=== PATIENT | male | born 1950 | race Caucasian/White ===

== ENCOUNTER 2017-11-13 00:18 | Emergency (ER) | payer MEDICARE, OTHER ==
[2017-11-13] MEDS ORDERED: PROPARACAINE 0.5% OPHTH DROPS 15 ML EACHEYE STA (00:33)
[2017-11-13] MEDS ORDERED: ERYTHROMYCIN OPHTH OINT 1 GM TUBE LEFTEYE STA (00:52)
--- NOTE | 2017-11-13 00:56 | ED Physician Documentation ---
PD HPI OPHTHO - Stated complaint Stated Complaint: LT EYE PAIN - Chief complaint Chief Complaint: Heent - History obtained from History obtained from: Patient - History of Present Illness Timing - onset: Today Timing - details: Constant Severity Comments: moderate Quality / character: Burning Associated symptoms: FB sensation Contributing factors: Other (The patient reports working with wood yesterday and reports getting wood dust in his eye. This morning the patient awoke with a foreign body sensation in his left eye. The patient has been rubbing his eye considerably for the past several hours. No relieving factors) Review of Systems Constitutional: denies: Fever Eyes: reports: Photophobia, Discharge, Irritation Ears: denies: Ear pain Nose: denies: Rhinorrhea / runny nose GI: denies: Nausea Skin: denies: Rash Musculoskeletal: denies: Neck pain Neurologic: denies: Headache PD PAST MEDICAL HISTORY - Past Medical History Past Medical History: Yes Cardiovascular: Hypertension : Kidney stones - Past Surgical History Past Surgical History: No - Present Medications Home Medications: Ambulatory Orders Medication Instructions Recorded Confirmed Erythromycin Base [Erythromycin 1 gm OP BID 5 Days #1 oint...g. 11/13/17 Ophthalmic Ointment] - Allergies Allergies/Adverse Reactions: Allergies Allergy/AdvReac Type Severity Reaction Status Date / Time No Known Drug Allergies Allergy Verified 11/13/17 00:30 - Social History Does the pt smoke?: No Smoking Status: Never smoker Does the pt drink ETOH?: No Does the pt have substance abuse?: No - Immunizations Immunizations are current?: No Immunizations: TDAP >10years/unknown - POLST Patient has POLST: No PD ED PE NORMAL - General General: Alert and oriented X 3, No acute distress - HEENT HEENT: Atraumatic - Neck Neck: Supple, no meningeal sign - Derm Derm: Normal color - Extremities Extremities: No deformity - Neuro Neuro: Alert and oriented X 3, Normal speech - Psych Psych: Normal affect PD ED PE EXPANDED - Eyes Eyes: PERRL, EOMI, Left eye, No eyelid FB (everted), Injected conj/sclera, Corneal abrasion, Fluorescein uptake, Anterior chambers clear, Other (The patient's I was evaluated with the slit-lamp. I could not identify a foreign body but there was evidence of a corneal abrasion. The anterior chamber was clear. The patient also had injected conjunctiva. The right eye had no abnormality). No: Subconj hemorrhage, Corneal FB, Hyphema, Ant chamber cells/ flare Results - Vitals Vitals: Vital Signs - 24 hr 11/13/17 11/13/17 00:25 01:03 Temperature 36.5 C 36.6 C Heart Rate 74 68 Respiratory 16 18 Rate Blood Pressure 248/97 H 230/95 H O2 Saturation 98 98 Oxygen O2 Source Room air PD MEDICAL DECISION MAKING - ED course ED course: The patient's I was evaluated using the slit-lamp and no foreign body was identified, the eyelid was inverted and I saw no evidence of foreign body. The patient's symptoms seem to be secondary to a corneal abrasion. The patient currently appears appropriate for discharge and ongoing outpatient management. I advised that the patient should follow-up with his department supervisor for recheck. The patient understands and agrees. I discussed warning signs and recommended returning to the emergency department immediately for worsening or any concerns - Sepsis Event Vital Signs: Vital Signs - 24 hr 11/13/17 11/13/17 00:25 01:03 Temperature 36.5 C 36.6 C Heart Rate 74 68 Respiratory 16 18 Rate Blood Pressure 248/97 H 230/95 H O2 Saturation 98 98 Oxygen O2 Source Room air Departure - Departure Disposition: 01 Home, Self Care Clinical Impression: Corneal abrasion Qualifiers: Encounter type: initial encounter Laterality: left Qualified Code(s): S05.02XA - Injury of conjunctiva and corneal abrasion without foreign body, left eye, initial encounter Condition: Good Instructions: Corneal Injury, ED Eye Injury Corneal Abrasion Prescriptions: Erythromycin Base [Erythromycin Ophthalmic Ointment] 1 gm OP BID 5 Days #1 oint...g. Comments: Please follow-up with your department supervisor this week for recheck and reevaluation of your injury. Please return to the emergency department for worsening symptoms or any concerns
[2017-11-13 01:05] VITALS: BP 230/95
== END 2017-11-13 01:05 | disposition home or self-care (01) ==
LOC: ED 00:18
DX: S05.02XA Injury of conjunctiva and corneal abrasion without foreign body, left eye, initial encounter (principal); W22.8XXA Striking against or struck by other objects, initial encounter; I10 Essential (primary) hypertension
CPT/HCPCS: 99283; J3490

== ENCOUNTER 2019-12-10 14:08 | Observation (INO) | payer MEDICARE, OTHER ==
[2019-12-10 15:55] LABS: BASOPHILS % (AUTO) 0.3 %; EOSINOPHILS # (AUTO) 0.1 10^3/uL (0.0-0.7); EOSINOPHILS % (AUTO) 2.2 %; HGB - HEMOGLOBIN 14.6 g/dL (14.0-18.0); LYMPHOCYTES # (AUTO) 1.9 10^3/uL (1.5-3.5); LYMPHOCYTES % (AUTO) 31.7 %; MEAN CORPUSCULAR HEMOGLOBIN 29.9 pg (27.0-31.0); MEAN CORPUSCULAR HGB CONC 33.3 g/dL (32.0-36.0); MEAN PLATELET VOLUME 10.1 fL (7.4-11.4); MONOCYTES # (AUTO) 0.5 10^3/uL (0.0-1.0); MONOCYTES % (AUTO) 8.2 %; NEUTROPHILS # (AUTO) 3.3 10^3/uL (1.5-6.6); NEUTROPHILS % (AUTO) 57.3 %; PLT - PLATELET COUNT 166 10^3/uL (130-450); RED BLOOD COUNT 4.88 10^6/uL (4.70-6.10); RED CELL DISTRIBUTION WIDTH 12.9 % (12.0-15.0); WHITE BLOOD COUNT 5.8 x10^3/uL (4.8-10.8)
--- NOTE | 2019-12-10 16:04 | XRAY Report ---
PROCEDURE: Chest 1 View X-Ray INDICATIONS: chest pain TECHNIQUE: One view of the chest was acquired. COMPARISON: None FINDINGS: Surgical changes and devices: None. Lungs and pleura: No pleural effusions or pneumothorax. Lungs are clear. Mediastinum: Mediastinal contours appear normal. Heart size is normal. Bones and chest wall: No suspicious bony lesions. Overlying soft tissues appear unremarkable. IMPRESSION: No acute cardiopulmonary pathology. Reviewed by: Ramón Muñoz MD on 12/10/2019 4:03 PM PDT Approved by: Ramón Muñoz MD on 12/10/2019 4:03 PM PDT Station ID: [id number]
[2019-12-10 16:07] LABS: KETONES, SERUM (ACETEST) NEGATIVE (NEGATIVE)
[2019-12-10 16:12] LABS: ALBUMIN 4.2 g/dL (3.2-5.5); ALBUMIN/GLOBULIN RATIO 1.1 (1.0-2.2); ALKALINE PHOSPHATASE 52 IU/L (42-121); ALT ALANINE AMINOTRANSFERASE 23 IU/L (10-60); AST ASPARTATE AMINOTRANSFERASE 28 IU/L (10-42); BILIRUBIN,TOTAL 0.7 mg/dL (0.2-1.0); BUN - BLOOD UREA NITROGEN 27 mg/dL (6-20); CALCIUM 9.6 mg/dL (8.5-10.3); CARBON DIOXIDE - CO2 31 mmol/L (21-32); CHLORIDE 105 mmol/L (101-111); CREATININE 1.2 mg/dL (0.6-1.2); GLUCOSE 94 mg/dL (70-100); LIPASE 24 U/L (22-51); MAGNESIUM 2.1 mg/dL (1.7-2.8); SODIUM 143 mmol/L (135-145); TOTAL PROTEIN 8.1 g/dL (6.7-8.2)
--- NOTE | 2019-12-10 17:00 | ED Physician Documentation ---
PD HPI ALTERED MENTAL STATUS - Stated complaint Stated Complaint: OVERALL TIREDNESS - Chief complaint Chief Complaint: General - History obtained from History obtained from: Patient - History of Present Illness Timing - onset: Yesterday (Reported abrupt onset yesterday of confusion forgetfulness and some trouble with word search and speaking. No focal weakness noted. No aphasia per se. Nursing notes state forgetful for a week, but tells me that is has been distinctly noticable just the past 2 days.) Timing - details: Abrupt onset, Still present, Waxing and waning Quality / character: Confused, Disoriented. No: Less responsive, Agitated Associated symptoms: Headache (moderate). No: Fever, Dyspnea Contributing factors: Diabetic (and has not checked blood sugar for a long time. Also has not been on meds for DM nor BP for 6 months to a year. Does not check BP either.). No: Anticoagulated, Recent med change, Intoxicated [place]line status: Alert and oriented X 3, Ambulatory Similar symptoms before: Has not had sx before Recently seen: Not recently seen Review of Systems Constitutional: denies: Fever Nose: denies: Rhinorrhea / runny nose, Congestion Throat: denies: Sore throat Cardiac: denies: Chest pain / pressure, Palpitations Respiratory: denies: Dyspnea, Cough GI: denies: Abdominal Pain, Nausea, Vomiting, Diarrhea : denies: Dysuria Skin: denies: Rash, Lesions Musculoskeletal: denies: Neck pain, Back pain Neurologic: reports: Difficulty speaking, Confused (for couple days), Altered mental status, Headache. denies: Focal weakness, Numbness, Head injury PD PAST MEDICAL HISTORY - Past Medical History Past Medical History: Yes Cardiovascular: Hypertension (not taking meds for year or more) Endocrine/Autoimmune: Type 2 diabetes (not taking meds for year or more) : Kidney stones - Past Surgical History Past Surgical History: No - Present Medications Home Medications: Ambulatory Orders Medication Instructions Recorded Confirmed Erythromycin Base [Erythromycin 1 gm OP BID 5 Days #1 oint...g. 11/13/17 Ophthalmic Ointment] - Allergies Allergies/Adverse Reactions: Allergies Allergy/AdvReac Type Severity Reaction Status Date / Time No Known Drug Allergies Allergy Verified 12/10/19 14:14 - Living Situation Living Situation: reports: With spouse/s.o. Living Arrangement: reports: At home - Social History Does the pt smoke?: No Smoking Status: Never smoker Does the pt drink ETOH?: No Does the pt have substance abuse?: No - Family History Family history: denies: CVA - Immunizations Immunizations are current?: No Immunizations: TDAP >10years/unknown - POLST Patient has POLST: No PD ED PE NORMAL - Vitals Vital signs reviewed: Yes - General General: No acute distress, Well developed/nourished. No: Alert and oriented X 3 (Oriented to person place but off on time. Was not sure of the month at first. Has some word search and forgetfulness from events of yesterday and today. His content otherwise is normal. No focal deficits nor aphasia per se.) - HEENT HEENT: Atraumatic, Pharynx benign - Neck Neck: Supple, no meningeal sign, No adenopathy - Cardiac Cardiac: No murmur. No: RRR (bradycardia) - Respiratory Respiratory: Clear bilaterally - Abdomen Abdomen: Normal bowel sounds, Soft, Non tender, Non distended - Derm Derm: Normal color, Warm and dry - Extremities Extremities: No tenderness to palpate, Normal ROM s pain, No edema, No calf tenderness / cord - Neuro Neuro: Alert and oriented X 3, No motor deficit, Normal speech Eye Opening: Spontaneous Motor: Obeys Commands Verbal: Confused GCS Score: 14 NIHSS - Level of Consciousness Level of consciousness: (0) Alert, Keenly responsive LOC Questions: (0) Answers both Q's correct LOC Commands: (0) Performs both correctly - Gaze Best Gaze: (0) Normal - Visual Visual: (0) No loss - Facial Palsy Facial Palsy: (0) Normal, symmetrical movement - Motor Arms (both separate) Motor Arm (right): (0) No drift Motor Arm (left): (0) No drift - Motor Legs (both separate) Motor Leg (right): (0) No drift Motor Leg (left): (0) No drift - Limb Ataxia Limb Ataxia: (0) Absent - Sensory Sensory: (0) Normal - Best Language Best Language: (0) No aphasia - Dysarthria Dysarthria: (0) Normal - Extinction and Inattention (formally neg Extinction and inattention: (0) No abnormality - Total Score/Results Total Score/Result: 0 Results - Vitals Vitals: Vital Signs - 24 hr 12/10/19 12/10/19 12/10/19 14:14 15:59 17:00 Temperature 36.6 C 36.5 C Heart Rate 60 54 L 55 L Respiratory 16 12 16 Rate Blood Pressure 180/94 H 172/83 H 200/100 H O2 Saturation 94 98 100 12/10/19 12/10/19 12/10/19 17:34 17:59 18:08 Temperature Heart Rate 51 L 50 L 51 L Respiratory 16 16 Rate Blood Pressure 224/112 H 224/97 H 176/90 H O2 Saturation 100 100 12/10/19 12/10/19 12/10/19 18:25 18:35 18:43 Temperature Heart Rate 51 L 53 L 53 L Respiratory Rate Blood Pressure 208/115 H 201/99 H 184/94 H O2 Saturation 12/10/19 18:51 Temperature Heart Rate 54 L Respiratory Rate Blood Pressure 187/94 H O2 Saturation Oxygen O2 Source Room air - EKG (time done) 17:51 Rate: Rate (enter#) (50) Rhythm: Sinus bradycardia [place]: Normal Intervals: Prolonged MT QRS: Normal Ischemia: Normal ST segments. No: ST elevation c/w ischemia, ST depression, T wave inversion Compare to prior EKG: Old EKG unavailable - Labs Labs: Laboratory Tests 12/10/19 12/10/19 12/10/19 15:49 15:49 15:49 WBC 5.8 RBC 4.88 Hgb 14.6 Hct 43.9 MCV 90.0 MCH 29.9 MCHC 33.3 RDW 12.9 Plt Count 166 MPV 10.1 Neut # (Auto) 3.3 Lymph # (Auto) 1.9 [place] # (Auto) 0.5 Eos # (Auto) 0.1 Baso # (Auto) 0.0 Absolute Nucleated RBC 0.00 Nucleated RBC % 0.0 Sodium 143 Potassium 4.3 Chloride 105 Carbon Dioxide 31 Anion Gap 7.0 BUN 27 H Creatinine 1.2 Estimated GFR (MDRD) 60 L Glucose 94 Lactic Acid 0.5 Calcium 9.6 Magnesium 2.1 Total Bilirubin 0.7 AST 28 ALT 23 Alkaline Phosphatase 52 Troponin I High Sens Total Protein 8.1 Albumin 4.2 Globulin 3.9 Albumin/Globulin Ratio 1.1 Lipase 24 Ethyl Alcohol Serum Ketones NEGATIVE 12/10/19 12/10/19 15:49 15:49 WBC RBC Hgb Hct MCV MCH MCHC RDW Plt Count MPV Neut # (Auto) Lymph # (Auto) [place] # (Auto) Eos # (Auto) Baso # (Auto) Absolute Nucleated RBC Nucleated RBC % Sodium Potassium Chloride Carbon Dioxide Anion Gap BUN Creatinine Estimated GFR (MDRD) Glucose Lactic Acid Calcium Magnesium Total Bilirubin AST ALT Alkaline Phosphatase Troponin I High Sens 8.7 Total Protein Albumin Globulin Albumin/Globulin Ratio Lipase Ethyl Alcohol < 5.0 Serum Ketones - Rads (name of study) head CT Radiology: Prelim report reviewed (No acute process. microvascular changes. ), See rad report PD MEDICAL DECISION MAKING - ED course Complexity details: re-evaluated patient, considered differential (The patient does not have any focal deficits. His blood pressure is quite high and remains consistently so in the ER. He has confusion and some headache for couple of d ays. Presuming hypertensive urgency at this point.), d/w patient Departure - Departure Disposition: ED Place in Observation Clinical Impression: Severe hypertension, Hypertensive urgency Altered mental status Qualifiers: Altered mental status type: disorientation Qualified Code(s): R41.0 - Disorientation, unspecified Condition: Stable Record reviewed to determine appropriate education?: Yes Discharge Date/Time: 12/10/19 20:13
[2019-12-10] MEDS ORDERED: SODIUM CHLORIDE 0.9% 1,000 ML IV STA (17:22)
[2019-12-10] MEDS ORDERED: NICARDIPINE HCL 25 MG in SODIUM CHLORIDE 0.9% 240 ML IV STA (17:40)
--- NOTE | 2019-12-10 18:37 | CT Report ---
PROCEDURE: HEAD WO INDICATIONS: confusion TECHNIQUE: Noncontrast 4.5 mm thick angled axial sections acquired from the foramen magnum to the vertex. For r adiation dose reduction, the following was used: automated exposure control, adjustment of mA and/or kV according to patient size. COMPARISON: None. FINDINGS: Image quality: Excellent. The ventricular system and cortical sulci demonstrate atrophy, consistent for patient's stated age. There are areas of hypodensity in the periventricular and subcortical white matter. There is no acut e intra or extra-axial fluid collection. No acute hemorrhage, mass lesion or midline shift. Brainst em is unremarkable. Old right focus of lacunar ischemia is noted. Globes are symmetrical. Sinuses demonstrate minimal scattered areas of ethmoid mucosal thickening. Os seous structures are intact. IMPRESSION: 1. No acute intracranial process. 2. Moderate atrophy and chronic microvascular ischemic changes. Reviewed by: Berna Serrano MD on 12/10/2019 6:36 PM PDT Approved by: Berna Serrano MD on 12/10/2019 6:36 PM PDT Station ID: [id number]
[2019-12-10] MEDS ORDERED: SODIUM CHLORIDE FLUSH 0.9% 10 ML SYRINGE IVP PRN (19:11)
--- NOTE | 2019-12-10 19:31 | HISTORY & PHYSICAL EXAMINATION ---
Chief Complaint - Chief Complaint Chief Complaint: Confusion,Not feeling well, hypertensive urgency History of Present Illness - Admitted From Admitted From:: [facility] ED - History Obtained From Records Reviewed: Yes History obtained from: Patient - History of Present Illness HPI Comment/Other: Patient is a 69-year-old male with history of hypertension, diabetes mellitus who wean himself off his medications a few years ago.He also has history of opiate abuse for which he is currently on a steadily weaning down dose of methadone.He reports that he was not feeling well today so he called the methadone clinic and complain and was advised to come to the ED. However the account from the emergency department physician was that he had a new onset of confusion and forgetfulness for which his was concerned. The concerning behaviors were that he was taking food out of the freezer and putting them into cabinets at home. He also kept getting in and out of his car but could not remember why he was doing so. In the ED he was found to have a systolic blood pressure as high as 220/140. A CT scan of his head was negative treatment for his blood pressure in the ED included placing him on a nicardipine drip. Consequently he was presented for admission for further treatment. At bedside the patient was eating a sandwich. He denied any chest pain, dyspnea, abdominal pain, nausea, vomiting, fever or chills. HeHas not seen a ph ysician since his last primary care physician retired 5 years ago. His last physician was Dr. Wu Upon arrival to his room his systolic blood pressure was 180s then 190s. History - Past Medical History Cardiovascular: reports: Hypertension (not taking meds for year or more) Endocrine/Autoimmune: reports: Type 2 diabetes (not taking meds for year or more) : reports: Kidney stones MRSA Hx?: No - Past Surgical History Ortho: reports: Knee replacement (right) - Family & Social History Family History: Father: [place] ( at age 47) Family History Comment/Other: Mother at 93 from heart failure Living arrangement: At home Living Situation: With spouse/s.o. Social History Notes: Patient has smoked about half a pack of cigarettes for 40+ years on and off. He has not drank alcoholin 30 years. He has history of opiate abuse for which he is currently on methadone. - POLST Patient has POLST: No POLST Status: Full Code Meds/Allgy - Home Medications Home Medications: Ambulatory Orders Medication Instructions Recorded Confirmed Erythromycin Base [Erythromycin 1 gm OP BID 5 Days #1 oint...g. 11/13/17 Ophthalmic Ointment] - Allergies Allergies/Adverse Reactions: Allergies Allergy/AdvReac Type Severity Reaction Status Date / Time No Known Drug Allergies Allergy Verified 12/10/19 14:14 Review of Systems - Constitutional Constitutional: denies: Fatigue, Fever, Chills, Weakness - Eyes Eyes: denies: Pain, Vision loss, Dipolpia - Ears, Nose & Throat Ears, Nose & Throat: denies: Ear pain - Cardiovascular Cariovascular: denies: Irregular heart rate, Palpitations, Chest pain, Edema, Lightheadedness, Syncope - Respiratory Respiratory: denies: Cough, Sputum production, Wheezing, Snoring - Gastrointestinal Gastrointestinal: denies: Abdominal pain, Abdominal distention, Constipation, Diarrhea, Nausea, Vomiting - Genitourinary Genitourinary: denies: Dysuria, Frequency, Urgency, Hematuria, Incontinence - Musculoskeletal Musculoskeletal: denies: Muscle pain, Back pain - Integumentary Integumentary: denies: Rash, Pruritis, Lesions, Dryness - Neurological Neurological: denies: General weakness, Focal weakness, Headache, Dizziness - Psychiatric Psychiatric: denies: Depression, Anxiety - Endocrine Endocrine: denies: Polyuria, Polydypsia - Hematologic/Lymphatic Hematologic/Lymphatic: denies: Anemia, Bruising Prior Level of Functionality: She is independent of activities of daily living. He walks. He also drives a car. 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 Exam - Vital Signs Vital Signs: Vital Signs x48h Temp Pulse Resp BP Pulse Ox 12/10/19 19:31 66 16 182/97 H 100 12/10/19 18:51 54 L 187/94 H 12/10/19 18:43 53 L 184/94 H 12/10/19 18:35 53 L 201/99 H 12/10/19 18:25 51 L 208/115 H 12/10/19 18:08 51 L 176/90 H 12/10/19 17:59 50 L 16 224/97 H 100 12/10/19 17:34 51 L 16 224/112 H 100 12/10/19 17:00 55 L 16 200/100 H 100 12/10/19 15:59 36.5 C 54 L 12 172/83 H 98 12/10/19 14:14 36.6 C 60 16 180/94 H 94 - Physical Exam General Appearance: positive: No acute distress, Alert Eyes Bilateral: positive: PERRL, EOMI ENT: positive: No signs of dehydration Neck: positive: No JVD, Trachea midline Respiratory: positive: Chest non-tender, No respiratory distress, Breath sounds nml Cardiovascular: positive: Regular rate & rhythm, No murmur Abdomen: positive: Non-tender, Nml bowel sounds, No distention Back: positive: Nml inspection Skin: positive: Color nml, Warm, Dry Extremities: positive: Non-tender, Full ROM, Nml appearance, No pedal edema Neurologic/Psychiatric: positive: Oriented x3, CN's nml (2-12), Motor nml, Mood/affect nml Conclusion/Plan - Problem List (1) Hypertensive urgency Conclusion/Plan: Patient was initially placed on nicardipine drip. This was discontinued upon admission. Patient was treated with hydralazine 10 mg IV every 4 hours PRN for systolic blood pressure greater than 180. Upon arrival to the floor patient received an extra dose of hydralazine 20 mg IV once. By 10 PM patient blood pressure was 145/72. Patient is fully awake alert and oriented x3. We will continue to monitor patient through the night. Patient would need to be placed on an antihypertensive upon discharge. (2) Altered mental status Conclusion/Plan: Likely secondary to hypertensive urgency. Symptoms have resolved with improvement in patient's blood pressure. Most recent blood pressure is 157/67. We will continue to monitor Qualifiers: Altered mental status type: disorientation Qualified Code(s): R41.0 - Disorientation, unspecified (3) Diabetes mellitus Conclusion/Plan: Patient used to be on metformin but took himself off the medication. Reason is unclear. We will check a hemoglobin A1c. Qualifiers: Diabetes mellitus type: type 2 - Lab Results Fish Bones: 12/10/19 15:49 12/10/19 15:49 Core Measures - Anticipated LOS I expect patient to be DC'd or transferred within 96 hours.: Yes - DVT/VTE - Prophylaxis VTE/DVT Device ordered at admit?: Yes
[2019-12-10] MEDS ORDERED: hydrALAZINE INJ 20 MG/ML VIAL IVP STA (19:34)
[2019-12-10 20:40] LABS: MUDS CUTOFF CONCENTRATIONS CUTOFF CONC BELOW:
[2019-12-10 20:41] LABS: BILIRUBIN,URINE NEGATIVE (NEGATIVE); GLUCOSE, URINE (UA) NEGATIVE (NEGATIVE); KETONES,URINE (UA) NEGATIVE (NEGATIVE); LEUKOCYTE ESTERASE, URINE NEGATIVE (NEGATIVE); NITRITE,URINE NEGATIVE (NEGATIVE); OCCULT BLOOD,URINE NEGATIVE (NEGATIVE); PH,URINE 6.5 PH (5.0-7.5); PROTEIN,URINE NEGATIVE (NEGATIVE); UROBILINOGEN,URINE 0.2 (NORMAL) E.U./dL (NORMAL)
[2019-12-10 20:53] LABS: CLARITY,URINE CLEAR (CLEAR)
[2019-12-10 20:54] LABS: AMPHETAMINE SCREEN,URINE NEGATIVE (NEGATIVE); BENZODIAZEPINES SCREEN, URINE NEGATIVE (NEGATIVE); COCAINE SCREEN URINE NEGATIVE (NEGATIVE); METHADONE SCREEN, URINE POSITIVE (NEGATIVE); METHAMPHETAMINES SCREEN, URINE NEGATIVE (NEGATIVE); OPIATE SCREEN, URINE NEGATIVE (NEGATIVE); OXYCODONE SCREEN, URINE NEGATIVE (NEGATIVE); PROPOXYPHENE SCREEN, URINE NEGATIVE (NEGATIVE); TRICYCLIC ANTIDEPRESSANT,URINE NEGATIVE (NEGATIVE)
[2019-12-10] MEDS ORDERED: hydrALAZINE INJ 20 MG/ML VIAL IVP PRN (23:30)
[2019-12-11] MEDS: SODIUM CHLORIDE FLUSH 0.9% 10 ML SYRINGE IVP SCH ×2 (01:27→09:42)
[2019-12-11 05:36] LABS: BASOPHILS % (AUTO) 0.6 %; EOSINOPHILS # (AUTO) 0.2 10^3/uL (0.0-0.7); EOSINOPHILS % (AUTO) 3.2 %; HGB - HEMOGLOBIN 14.1 g/dL (14.0-18.0); LYMPHOCYTES # (AUTO) 1.7 10^3/uL (1.5-3.5); LYMPHOCYTES % (AUTO) 34.5 %; MEAN CORPUSCULAR HEMOGLOBIN 30.5 pg (27.0-31.0); MEAN CORPUSCULAR HGB CONC 34.3 g/dL (32.0-36.0); MEAN PLATELET VOLUME 10.6 fL (7.4-11.4); MONOCYTES # (AUTO) 0.4 10^3/uL (0.0-1.0); MONOCYTES % (AUTO) 8.6 %; NEUTROPHILS # (AUTO) 2.7 10^3/uL (1.5-6.6); NEUTROPHILS % (AUTO) 52.9 %; PLT - PLATELET COUNT 160 10^3/uL (130-450); RED BLOOD COUNT 4.62 10^6/uL (4.70-6.10); RED CELL DISTRIBUTION WIDTH 12.7 % (12.0-15.0)
[2019-12-11 05:46] LABS: CREATININE 0.9 mg/dL (0.6-1.2)
[2019-12-11] MEDS ORDERED: PANTOPRAZOLE 40 MG TABLET PO SCH (07:00)
[2019-12-11 11:45] LABS: HEMOGLOBIN A1c% 6.7 % (4.27-6.07)
--- NOTE | 2019-12-11 11:49 | Discharge Plan ---
Discharge Plan Problem Reviewed?: Yes Disposition: Home, Self Care Condition: Stable Diet: Low Sodium (Diabetic diet as well) Activity Restrictions: Activity as Tolerated Shower Restrictions: No Driving Restrictions: Yes (NO DRIVING UNTIL CLEARED TO RESUME by PCP) Instruction Topics: ED HTN Established Health Concerns: You were hospitalized in Observation status because of having 2 days of confusion and altered mental status, witnessed by your and another person. The head CT showed that you have small blood vessel changes consistent with poorly controlled blood pressure. Your blood pressure was extremely elevated, since you have not been taking BP meds for years. You have been started on new medicine for blood pressure control. You should see your new PCP, an appointment was made to see Dr. Duron on this Monday. You may not drive a vehicle until cleared to resume driving by your PCP. Please remember to eat a low-salt diet which will also help with the blood pressure. Your A1c level was 6.7, which means fair control of diabetes. Remember to eat a diabetic, low sugar, low starch diet to manage this. The Metformin was not restarted. The PCP should manage your diabetes as an outpatient. New prescriptions were sent to your [facility] pharmacy in [place]. Plan of Treatment: As above. Care Goals: Improvement in symptoms and stabilization are the goals. Assessment: The patient and understand and are agreeable with the plan. Written instructions were given at discharge as a reminder. Additional Instructions or Follow Up instructions: If you have new or worsening symptoms, call your PCP for advice or come to the ER. No Smoking: If you smoke, Please STOP! Call for help. Follow-up with: Shira Duron MD [Provider Admit Priv/Credential] -
[2019-12-11] MEDS ORDERED: amLODIPine 5 MG TABLET PO SCH (12:00)
--- NOTE | 2019-12-11 12:02 | PHARMACY PROGRESS NOTE ---
- Best Possible Medication History Admit Date and Time: 12/10/191910 Processed by: Pharmacy Medication History completed: Yes Patient Interview: Completed Secondary Source(s): Physician records (PATIENT REPORTS HE DOES NOT TAKE HOME MEDICATIONS. [facility] ), Pharmacy records As the person ultimately responsible for medication therapy, providers are able to order a medication from an existing home medication list in [facility] via the "Reconcile Routine" prior to Confirmation of that medication by learning support aide. Such practice is discouraged except when the physician, in their clinical judgment, deems that a medical need exists for a medication without regard to previous use.
--- NOTE | 2019-12-11 12:24 | DISCHARGE SUMMARY ---
Discharge Summary Admit Date: 12/10/19 Discharge Date: 12/11/19 Discharging Provider: Dr Trini Deal Primary Care Provider: Dr Shira Duron Code Status: Attempt Resuscitation Condition at Discharge: Stable Discharge Disposition: 01 Home, Self Care - HPI History of Present Illness: From the admission H&P of [facility]: Patient is a 69-year-old male with history of hypertension, diabetes mellitus who wean himself off all his medications a few years ago and has not seen a doctor since his PCP, Dr Wu retired. He also has history of opiate abuse for which he is currently on a steadily weaning down dose of methadone. He reports that he was not feeling well today so he called the methadone clinic and complain and was advised to come to the ED. However the account from the emergency department physician was that he had a new onset of confusion and forgetfulness for which his was concerned. The concerning behaviors were that he was taking food out of the freezer and putting them into cabinets at home. He also kept getting in and out of his car but could not remember why he was doing so. In the ED he was found to have a systolic blood pressure as high as 220/140. A CT scan of his head was negative. He was started on treatment for his blood pressure in the ED which included placing him on a Nicardipine drip. Consequently he was presented for admission for further treatment. At bedside the patient was eating a sandwich. He denied any chest pain, dyspnea, abdominal pain, nausea, vomiting, fever or chills. Systolic blood pressure was 180s - 190s. He was oriented to person place but off on time, was not sure of the month at first. He had some word search trouble and forgetfulness from events of yesterday and today. His content otherwise is normal. No focal motor deficits nor aphasia. He is being placed into Ob servation status for management of extremely elevated blood pressure, hypertensive urgency, likely leading to his altered mental status. - HOSPITAL COURSE Hospital Course: (1) Hypertensive urgency Patient was initially placed on Nicardipine drip in the ER which was discontinued upon admission and he was treated with Hydralazine 10 mg IV every 4 hours PRN for systolic blood pressure greater than 180. This improved the blood pressure into 140-150 systolic range. The following day he was started on oral Amlodipine 5 mg daily. With these blood pressure readings he was fully awake alert and oriented x3. (2) Altered mental status The patient reported that, thinking back, he thought he was doing everything completely normally during 2 actual days of confusion. It was only after a friend and his convinced him that he was not behaving normally that he had agreed to come to the ER. He had improved cognition and decision-making skills once his blood pressure was in the 140s to 150s. Therefore, the altered mental status was likely secondary to hypertensive urgency. He was told, and was at bedside, that he is not cleared to drive a motor vehicle, due to the confusion, until cleared to resume driving by a PCP. For this reason, establishing with a new PCP urgently was undertaken and the electron beam photo mask maker helped schedule an appointment for him. (3) Diabetes mellitus Patient used to be on Metformin but took himself off the medication. Reason is unclear. We checked a hemoglobin A1c and it was 6.7. Metformin was not resumed. He was advised to restart a diabetic diet more strictly. Further diabetic management will also be done by the PCP. 4) Methadone maintenance pt He has history of opiate abuse for which he is currently on methadone, which he gets from a clinic, since he has had no PCP. - ALLERGIES Allergies/Adverse Reactions: Allergies Allergy/AdvReac Type Severity Reaction Status Date / Time No Known Drug Allergies Allergy Verified 12/10/19 14:14 - MEDICATIONS Home Medications: Ambulatory Orders Medication Instructions Recorded Confirmed Amlodipine Besylate [Norvasc] 10 mg PO DAILY #30 tablet 12/11/19 Methadone HCl 46 mg PO DAILY 12/11/19 12/11/19 - PHYSICAL EXAM AT DISCHARGE General Appearance: positive: No acute distress, Alert Eyes Bilateral: positive: Normal inspection, EOMI, Other (Edentulous) ENT: positive: ENT inspection nml, No signs of dehydration Neck: positive: Nml inspection, No JVD Respiratory: positive: No respiratory distress, Breath sounds nml Cardiovascular: positive: Regular rate & rhythm, No murmur Abdomen: positive: Non-tender, Nml bowel sounds, No distention Skin: positive: Color nml, Warm, Dry, Laceration (cm) Extremities: positive: Non-tender Neurologic/Psychiatric: positive: Oriented x3, Motor nml - LABS Result Diagrams: 12/11/19 05:12/11/19 05:25 - FOLLOW UP Follow Up: Or physical ther worked with the patient, asked his choice, to arrange an outpatient visit soon with a new PCP. He will be seeing Dr. Duron at the [facility] in several days. - TIME SPENT Time Spent in Discharge (Minutes): 30
[2019-12-11 13:04] VITALS: BP 182/89
== END 2019-12-11 13:11 | disposition home or self-care (01) ==
LOC: ED 14:08 → MS2 19:11
PROVIDERS: ADMIT Internal Medicine; ATTEND Internal Medicine
DX: I16.0 Hypertensive urgency (principal); R41.82 Altered mental status, unspecified; E11.9 Type 2 diabetes mellitus without complications; F11.20 Opioid dependence, uncomplicated; I10 Essential (primary) hypertension; T46.5X6A Underdosing of other antihypertensive drugs, initial encounter; T38.3X6A Underdosing of insulin and oral hypoglycemic [antidiabetic] drugs, initial encounter; Z91.128 Patient's intentional underdosing of medication regimen for other reason; Z87.891 Personal history of nicotine dependence
CPT/HCPCS: 36415; 70450; 71045; 80048; 80053; 80306; 81003; 82009; 83036; 83605; 83690; 83735; 84484; 85025; 93005; 96365; 96366; 96375; 99284; 99285; 99406; A9270; G0378; 80320; 81001; 87086

== ENCOUNTER 2020-01-02 07:41 | Outpatient (CLI) | payer MEDICARE, OTHER ==
[2020-01-02 15:11] LABS: BASOPHILS % (AUTO) 0.7 %; EOSINOPHILS # (AUTO) 0.1 10^3/uL (0.0-0.7); EOSINOPHILS % (AUTO) 3.5 %; HGB - HEMOGLOBIN 13.8 g/dL (14.0-18.0); LYMPHOCYTES # (AUTO) 0.7 10^3/uL (1.5-3.5); LYMPHOCYTES % (AUTO) 16.2 %; MEAN CORPUSCULAR HEMOGLOBIN 30.1 pg (27.0-31.0); MEAN CORPUSCULAR HGB CONC 33.3 g/dL (32.0-36.0); MEAN CORPUSCULAR VOLUME 90.4 fL (80.0-94.0); MEAN PLATELET VOLUME 11.3 fL (7.4-11.4); MONOCYTES # (AUTO) 0.4 10^3/uL (0.0-1.0); MONOCYTES % (AUTO) 8.7 %; NEUTROPHILS # (AUTO) 2.8 10^3/uL (1.5-6.6); NEUTROPHILS % (AUTO) 70.7 %; PLT - PLATELET COUNT 152 10^3/uL (130-450); RED BLOOD COUNT 4.58 10^6/uL (4.70-6.10); RED CELL DISTRIBUTION WIDTH 12.7 % (12.0-15.0)
[2020-01-02 15:32] LABS: ALBUMIN 3.8 g/dL (3.2-5.5); ALKALINE PHOSPHATASE 42 IU/L (42-121); ALT ALANINE AMINOTRANSFERASE 18 IU/L (10-60); AST ASPARTATE AMINOTRANSFERASE 23 IU/L (10-42); BILIRUBIN,TOTAL 0.6 mg/dL (0.2-1.0); BUN - BLOOD UREA NITROGEN 31 mg/dL (6-20); CALCIUM 9.1 mg/dL (8.5-10.3); CARBON DIOXIDE - CO2 28 mmol/L (21-32); CHLORIDE 105 mmol/L (101-111); CHOL/HDL RATIO 6.7 (<5.0); CHOLESTEROL 201 mg/dL; GLUCOSE 134 mg/dL (70-100); HDL CHOLESTEROL 30 mg/dL; LDL CHOLESTEROL,CALCULATED 120 mg/dL; SODIUM 141 mmol/L (135-145); TOTAL PROTEIN 7.6 g/dL (6.7-8.2); VLDL CHOLESTEROL 51 mg/dL
[2020-01-02 20:31] LABS: HEMOGLOBIN A1c% 6.5 % (4.27-6.07)
== END 2020-01-02 07:42 | disposition home or self-care (01) ==
LOC: LAB.S 07:41
PROVIDERS: ATTEND Family Medicine
DX: E11.9 Type 2 diabetes mellitus without complications (principal); Z79.891 Long term (current) use of opiate analgesic; I10 Essential (primary) hypertension; Z20.828 Contact with and (suspected) exposure to other viral communicable diseases
CPT/HCPCS: 36415; 80053; 80061; 83036; 84443; 85025; U0004; 83721

== ENCOUNTER 2020-01-02 15:21 | Outpatient (CLI) | payer MEDICARE, OTHER | END 2020-01-02 15:22 | disposition home or self-care (01) | LOC: COV 15:21 | PROVIDERS: ATTEND Family Medicine | DX: Z20.828 Contact with and (suspected) exposure to other viral communicable diseases (principal) ==

== ENCOUNTER 2020-01-29 09:56 | Outpatient (CLI) | payer MEDICARE, OTHER | END 2020-01-29 09:57 | disposition home or self-care (01) | LOC: DI 09:56 | PROVIDERS: ATTEND Physician Assistant | DX: I49.9 Cardiac arrhythmia, unspecified (principal); R00.1 Bradycardia, unspecified; R06.01 Orthopnea; R53.83 Other fatigue | CPT/HCPCS: 93306 ==

== ENCOUNTER 2021-02-15 11:57 | Outpatient (CLI) | payer MEDICARE ==
[2021-02-15 15:24] LABS: ALBUMIN 4.1 g/dL (3.2-5.5); ALBUMIN/GLOBULIN RATIO 1.2 (1.0-2.2); ALKALINE PHOSPHATASE 55 IU/L (42-121); ALT ALANINE AMINOTRANSFERASE 25 IU/L (10-60); AST ASPARTATE AMINOTRANSFERASE 27 IU/L (10-42); BILIRUBIN,TOTAL 0.5 mg/dL (0.2-1.0); BUN - BLOOD UREA NITROGEN 23 mg/dL (6-20); CALCIUM 8.9 mg/dL (8.5-10.3); CARBON DIOXIDE - CO2 25 mmol/L (21-32); CHLORIDE 103 mmol/L (101-111); CHOL/HDL RATIO 7.2 (<5.0); CHOLESTEROL 180 mg/dL; CREATININE 1.1 mg/dL (0.6-1.2); GFR - MDRD 66 (>89); GLUCOSE 263 mg/dL (70-100); HDL CHOLESTEROL 25 mg/dL; POTASSIUM 3.8 mmol/L (3.5-5.0); SODIUM 135 mmol/L (135-145); TOTAL PROTEIN 7.6 g/dL (6.7-8.2); TRIGLYCERIDES 542 mg/dL
[2021-02-15 15:58] LABS: LDL CHOLESTEROL,DIRECT 77 mg/dL; LDLD/HDL RATIO 3.1 (<3.6)
[2021-02-15 16:25] LABS: ESTIMATED AVERAGE GLUCOSE 169 mg/dL (70-100); HEMOGLOBIN A1c% 7.5 % (4.27-6.07)
[2021-02-15 16:58] LABS: BASOPHILS % (AUTO) 0.3 %; EOSINOPHILS # (AUTO) 0.1 10^3/uL (0.0-0.7); EOSINOPHILS % (AUTO) 1.1 %; HCT - HEMATOCRIT 40.7 % (42.0-52.0); HGB - HEMOGLOBIN 13.6 g/dL (14.0-18.0); LYMPHOCYTES # (AUTO) 1.7 10^3/uL (1.5-3.5); LYMPHOCYTES % (AUTO) 27.9 %; MEAN CORPUSCULAR HGB CONC 33.4 g/dL (32.0-36.0); MEAN CORPUSCULAR VOLUME 89.6 fL (80.0-94.0); MEAN PLATELET VOLUME 11.7 fL (7.4-11.4); MONOCYTES # (AUTO) 0.3 10^3/uL (0.0-1.0); MONOCYTES % (AUTO) 5.5 %; NEUTROPHILS % (AUTO) 64.6 %; PLT - PLATELET COUNT 174 10^3/uL (130-450); RED BLOOD COUNT 4.54 10^6/uL (4.70-6.10); RED CELL DISTRIBUTION WIDTH 13.2 % (12.0-15.0); WHITE BLOOD COUNT 6.2 x10^3/uL (4.8-10.8)
== END 2021-02-15 11:58 | disposition home or self-care (01) ==
LOC: LAB.S 11:57
PROVIDERS: ATTEND Internal Medicine
DX: I10 Essential (primary) hypertension (principal); E11.9 Type 2 diabetes mellitus without complications; Z12.5 Encounter for screening for malignant neoplasm of prostate
CPT/HCPCS: 36415; 80053; 80061; 83036; 83721; 85025; G0103; 84153

== ENCOUNTER 2021-05-18 07:06 | Outpatient (CLI) | payer MEDICARE ==
[2021-05-18 14:33] LABS: BASOPHILS % (AUTO) 0.7 %; EOSINOPHILS # (AUTO) 0.2 10^3/uL (0.0-0.7); HCT - HEMATOCRIT 43.2 % (42.0-52.0); HGB - HEMOGLOBIN 14.6 g/dL (14.0-18.0); LYMPHOCYTES # (AUTO) 1.9 10^3/uL (1.5-3.5); LYMPHOCYTES % (AUTO) 31.3 %; MEAN CORPUSCULAR HEMOGLOBIN 30.4 pg (27.0-31.0); MEAN CORPUSCULAR HGB CONC 33.8 g/dL (32.0-36.0); MEAN PLATELET VOLUME 11.4 fL (7.4-11.4); MONOCYTES # (AUTO) 0.6 10^3/uL (0.0-1.0); MONOCYTES % (AUTO) 9.4 %; NEUTROPHILS # (AUTO) 3.4 10^3/uL (1.5-6.6); NEUTROPHILS % (AUTO) 55.3 %; PLT - PLATELET COUNT 202 10^3/uL (130-450); RED CELL DISTRIBUTION WIDTH 13.2 % (12.0-15.0); WHITE BLOOD COUNT 6.1 x10^3/uL (4.8-10.8)
[2021-05-18 16:07] LABS: ALBUMIN 4.4 g/dL (3.2-5.5); ALBUMIN/GLOBULIN RATIO 1.4 (1.0-2.2); BILIRUBIN,TOTAL 0.5 mg/dL (0.2-1.0); CALCIUM 9.1 mg/dL (8.5-10.3); POTASSIUM 3.9 mmol/L (3.5-5.0); TOTAL PROTEIN 7.6 g/dL (6.7-8.2)
[2021-05-18 20:49] LABS: ESTIMATED AVERAGE GLUCOSE 186 mg/dL (70-100); HEMOGLOBIN A1c% 8.1 % (4.27-6.07)
== END 2021-05-18 07:07 | disposition home or self-care (01) ==
LOC: LAB.S 07:06
PROVIDERS: ATTEND Internal Medicine
DX: E11.9 Type 2 diabetes mellitus without complications (principal)
CPT/HCPCS: 36415; 80053; 83036; 85025

== ENCOUNTER 2021-06-08 09:09 | Outpatient (CLI) | payer MEDICARE ==
--- NOTE | 2021-06-08 17:20 | CT Report ---
PROCEDURE: Low Dose Lung Cancer Screen INDICATIONS: HX OF SMOKING TECHNIQUE: Noncontrast low-dose images were acquired from the pulmonary apices to the posterior costophrenic ang les. Multiplanar MIP reformats were then acquired. For radiation dose reduction, the following was used: automated exposure control, adjustment of mA and/or kV according to patient size. COMPARISON: None. FINDINGS: Image quality: Excellent. Lungs and pleura: Scattered atelectasis in posterior medial and lateral aspect of right lung base an d lateral aspect of left lung base are seen. No acute airspace opacities. No discrete pulmonary nodul es are seen. No pleural effusion or pneumothorax. Central and peripheral airway is patent. Mediastinum: Heart size is normal. No pericardial effusion. No mediastinal adenopathy by size crit eria. Thoracic aorta and central pulmonary arteries are normal in size. Mild atherosclerotic calcif ications in coronary vessels and thoracic aorta is seen. Esophagus is normal in caliber. No hiatal h ernia. Bones and chest wall: No suspicious bony lesions. No vertebral body compression fractures. No axil josue or supraclavicular adenopathy by size criteria. The thyroid is normal in size and there are no incidental findings. Abdomen: Visualized upper abdomen solid organs and bowel loops appear normal in the absence of contr ast. IMPRESSION: 1. Scattered atelectasis in bilateral lung bases. No discrete pulmonary nodule seen. 2. No mediastinal or hilar lymphadenopathy by size criteria. 3. Mild atherosclerotic calcifications in coronary vessels. Lung RADS category: 1, negative study. Annual low-dose screening CT chest follow-up is recommended if clinically indicated. CLINICAL RECOMMENDATION STATEMENTS: In patients <35 years with an ITN detected on CT, MRI, or extrathyroidal ultrasound, the Committee re commends further evaluation with dedicated thyroid ultrasound if the nodule is "e1 cm and has no susp icious imaging features, and if the patient has normal life expectancy. In patients "e35 years with an ITN detected on CT, MRI, or extrathyroidal ultrasound, the Committee r ecommends further evaluation with dedicated thyroid ultrasound if the nodule is "e1.5 cm and has no s uspicious imaging features, and if the patient has normal life expectancy. (ACR, 2014) Reviewed by: Ramón Muñoz MD on 06/08/2021 5:19 PM PST Approved by: Ramón Muñoz MD on 06/08/2021 5:19 PM [facility] Station ID: [id number]
== END 2021-06-08 09:10 | disposition home or self-care (01) ==
LOC: DI 09:09
PROVIDERS: ATTEND Internal Medicine
DX: Z12.2 Encounter for screening for malignant neoplasm of respiratory organs (principal); J98.11 Atelectasis; I25.10 Atherosclerotic heart disease of native coronary artery without angina pectoris; Z87.891 Personal history of nicotine dependence

== ENCOUNTER 2021-08-19 02:05 | Emergency (ER) | payer MEDICARE ==
[2021-08-19] MEDS ORDERED: ONDANSETRON 4 MG/2 ML VIAL IVP STA (02:23)
[2021-08-19] MEDS ORDERED: SODIUM CHLORIDE 0.9% 1,000 ML IV STA (02:23)
[2021-08-19] MEDS ORDERED: MORPHINE 2 MG/ML CARPUJECT IVP STA (02:23)
--- NOTE | 2021-08-19 02:31 | ED Physician Documentation ---
PD HPI ABD PAIN - Stated complaint Stated Complaint: LOWER LT ABD PX - Additional information Additional information: Patient is 71-year-old male with past medical significant for kidney stones, diabetes presenting with left lower quadrant abdominal pain. Endorses for pain that began acutely at 2200 hrs. this evening. States it feels similar to kidney stones he has had in the past. Endorses for 1 episode vomiting. Denies dysuria or blood in urine. Otherwise denies for any fever, chills, chest pain, shortness of breath, new rash, new weakness/numbness/tingling in any extremity. Review of Systems Ten Systems: 10 systems reviewed and negative Constitutional: denies: Fever Eyes: denies: Loss of vision Ears: denies: Loss of hearing Nose: denies: Rhinorrhea / runny nose Throat: denies: Dental pain / toothache Cardiac: denies: Chest pain / pressure Respiratory: denies: Dyspnea GI: reports: Abdominal Pain, Nausea, Vomiting : denies: Dysuria Skin: denies: Rash PD PAST MEDICAL HISTORY - Past Medical History Cardiovascular: Hypertension (not taking meds for year or more) Respiratory: None Neuro: Head injury Endocrine/Autoimmune: Type 2 diabetes (not taking meds for year or more) GI: None : Kidney stones Psych: None Musculoskeletal: None Derm: None - Past Surgical History Past Surgical History: No Ortho: Knee replacement (right) - Present Medications Home Medications: Ambulatory Orders Medication Instructions Recorded Confirmed Amlodipine Besylate [Norvasc] 10 mg PO DAILY #30 tablet 12/11/19 Methadone HCl 46 mg PO DAILY 12/11/19 12/11/19 Ibuprofen [Motrin] 800 mg PO Q8H PRN #30 tablet 08/19/21 Losartan [Cozaar] 50 mg PO DAILY 08/19/21 08/19/21 Ondansetron Odt [Zofran] 4 mg TL Q6H PRN #10 tablet 08/19/21 Rosuvastatin Calcium [Crestor] 20 mg PO 08/19/21 hydrALAZINE [Apresoline] 75 mg 08/19/21 metFORMIN [Glucophage] 500 mg PO BID 08/19/21 08/19/21 - Allergies Allergies/Adverse Reactions: Allergies Allergy/AdvReac Type Severity Reaction Status Date / Time No Known Drug Allergies Allergy Verified 08/19/21 02:24 - Social History Does the pt smoke?: No Smoking Status: Never smoker Does the pt drink ETOH?: No Does the pt have substance abuse?: No - Immunizations Immunizations are current?: No Immunizations: TDAP >10years/unknown - POLST Patient has POLST: No POLST Status: Full Code PD ED PE NORMAL - Vitals Vital signs reviewed: Yes - General General: Alert and oriented X 3 - HEENT HEENT: Atraumatic - Neck Neck: Supple, no meningeal sign, No JVD - Cardiac Cardiac: RRR, No murmur - Respiratory Respiratory: No respiratory distress - Abdomen Abdomen: Normal bowel sounds, Soft, Non tender, No organomegaly - Male Male : Deferred - Rectal Rectal: Deferred - Back Back: No CVA TTP - Derm Derm: Normal color - Extremities Extremities: No deformity - Neuro Neuro: Alert and oriented X 3, supervisor diagnostic 2-12 intact, No motor deficit, No sensory deficit Results - Vitals Vitals: Vital Signs - 24 hr 08/19/21 08/19/21 08/19/21 02:22 02:41 02:54 Temperature 36.6 C Heart Rate 67 66 62 Respiratory 17 17 18 Rate Blood Pressure 216/101 H 195/84 H O2 Saturation 97 97 97 08/19/21 08/19/21 08/19/21 03:41 04:18 04:58 Temperature Heart Rate 62 64 Respiratory 16 16 17 Rate Blood Pressure O2 Saturation 95 96 08/19/21 08/19/21 08/19/21 06:26 06:41 06:45 Temperature 36.5 C Heart Rate 67 63 Respiratory 16 16 16 Rate Blood Pressure 173/85 H 171/78 H O2 Saturation 97 Oxygen O2 Source Room air - EKG (time done) 0239 Rate: Rate (enter#) (62) Rhythm: NSR [place]: Normal Intervals: Prolonged MT, Prolonged QT QRS: Normal Ischemia: Normal ST segments. No: Hyperacute T waves, T wave inversion Computer interpretation: Agree with computer - Labs Labs: Laboratory Tests 08/19/21 08/19/21 08/19/21 02:20 02:30 02:30 WBC 11.5 H RBC 4.82 Hgb 14.7 Hct 43.2 MCV 89.6 MCH 30.5 MCHC 34.0 RDW 13.3 Plt Count 197 MPV 10.5 Neut # (Auto) 10.2 H Lymph # (Auto) 1.[address] # (Auto) 0.3 Eos # (Auto) 0.0 Baso # (Auto) 0.0 Absolute Nucleated RBC 0.00 Nucleated RBC % 0.0 Sodium 138 Potassium 4.0 Chloride 102 Carbon Dioxide 23 Anion Gap 13.0 BUN 23 H Creatinine 1.0 Estimated GFR (MDRD) 73 L Glucose 283 H Lactic Acid Calcium 9.3 Total Bilirubin 0.5 AST 26 ALT 25 Alkaline Phosphatase 45 Troponin I High Sens Total Protein 8.0 Albumin 4.3 Globulin 3.7 Albumin/Globulin Ratio 1.2 Lipase 37 Urine Color YELLOW Urine Clarity CLEAR Urine pH 7.0 Ur Specific [place] 1.015 Urine Protein 30 H Urine Glucose (UA) >=1000 H Urine Ketones NEGATIVE Urine Occult Blood MODERATE H Urine Nitrite NEGATIVE Urine Bilirubin NEGATIVE Urine Urobilinogen 0.2 (NORMAL) Ur Leukocyte Esterase NEGATIVE Urine RBC 6-10 H Urine WBC 0-3 Ur Squamous Epith Cells RARE Squamous Urine Bacteria None Seen Ur Microscopic Review INDICATED Urine Culture Comments NOT INDICATED 08/19/21 08/19/21 02:30 02:51 WBC RBC Hgb Hct MCV MCH MCHC RDW Plt Count MPV Neut # (Auto) Lymph # (Auto) [facility] # (Auto) Eos # (Auto) Baso # (Auto) Absolute Nucleated RBC Nucleated RBC % Sodium Potassium Chloride Carbon Dioxide Anion Gap BUN Creatinine Estimated GFR (MDRD) Glucose Lactic Acid 1.6 Calcium Total Bilirubin AST ALT Alkaline Phosphatase Troponin I High Sens 12.5 Total Protein Albumin Globulin Albumin/Globulin Ratio Lipase Urine Color Urine Clarity Urine pH Ur Specific [place] Urine Protein Urine Glucose (UA) Urine Ketones Urine Occult Blood Urine Nitrite Urine Bilirubin Urine Urobilinogen Ur Leukocyte Esterase Urine RBC Urine WBC Ur Squamous Epith Cells Urine Bacteria Ur Microscopic Review Urine Culture Comments PD MEDICAL DECISION MAKING - ED course Complexity details: reviewed results ED course: Patient is 71-year-old male presenting to the emergency department with acute onset left-sided flank pain. Afebrile, hemodynamic stable arrival to the emergency department. No focal tenderness, guarding or rebound or rigidity. Labs obtained within normal limits are generally nonactionable. Urine analysis negative for indications of infection but positive for glucose and RBCs. Patient received imaging of his abdomen which demonstrated a 5 mm obstructing left UPJ with mild hydronephrosis. Additionally there was notable cholelithiasis, a renal cortical cyst and a 2 cm independent left adrenal nodule. All of these findings were communicated directly to the patient. Of note there was a significant delay in patient disposition due to delayed read from overnight radiology. At this time will discharge for follow-up with primary care and/or [facility] urology as needed. Otherwise clear return precautions and follow-up instructions were given prior to discharge. Departure - Departure Disposition: 01 Home, Self Care Clinical Impression: Kidney stone, Cholelithiasis, Renal cyst, Adrenal nodule Instructions: ED Stone Renal W Colic Prescriptions: Ibuprofen [Motrin] 800 mg PO Q8H PRN #30 tablet PRN Reason: PAIN &/OR FEVER Ondansetron Odt [Zofran] 4 mg TL Q6H PRN #10 tablet PRN Reason: Nausea / Vomiting Comments: Thank you for allowing us to care for you this evening at [facility]. Prescriptions were sent to [email or web address] in [place]. Today in the emergency department you are diagnosed with a 5 mm right-sided kidney stone. The remainder of your tests were all very reassuring including her renal function and urine analysis. Is an incidental finding you are also noted to have a Left-sided adrenal nodule. Please let your primary care doctor know about this finding. I have sent some high-dose nonsteroidal anti-inflammatory medication as well as medication for any ongoing nausea to your preferred pharmacy.Please drink plenty of fluids and get plenty of rest over the course of the next few days. Please do follow-up with both your primary care doctor as well as with [facility] urology: [facility] [address], [place] If it anytime you develop any new or worsening symptoms including worsening pain, fever, intractable nausea, vomiting, inability to tolerate p.o. fluid or if you find yourself having jennie red blood in your urine or unable to urinate please return to the emergency department. Discharge Date/Time: 08/19/21 06:56
[2021-08-19 02:33] LABS: BILIRUBIN,URINE NEGATIVE (NEGATIVE); GLUCOSE, URINE (UA) >=1000 mg/dL (NEGATIVE); KETONES,URINE (UA) NEGATIVE (NEGATIVE); LEUKOCYTE ESTERASE, URINE NEGATIVE (NEGATIVE); NITRITE,URINE NEGATIVE (NEGATIVE); OCCULT BLOOD,URINE MODERATE (NEGATIVE); PROTEIN,URINE 30 mg/dL (NEGATIVE); UROBILINOGEN,URINE 0.2 (NORMAL) E.U./dL (NORMAL)
[2021-08-19 02:34] LABS: CLARITY,URINE CLEAR (CLEAR)
[2021-08-19 02:40] LABS: BACTERIA,URINE None Seen /HPF (None Seen); SQUAMOUS EPITHELIAL CELL,UR RARE Squamous (<= Few); WBC,URINE 0-3 /HPF (0-3)
[2021-08-19 02:49] LABS: BASOPHILS % (AUTO) 0.3 %; EOSINOPHILS % (AUTO) 0.2 %; HCT - HEMATOCRIT 43.2 % (42.0-52.0); HGB - HEMOGLOBIN 14.7 g/dL (14.0-18.0); LYMPHOCYTES % (AUTO) 8.4 %; MEAN CORPUSCULAR HEMOGLOBIN 30.5 pg (27.0-31.0); MEAN CORPUSCULAR VOLUME 89.6 fL (80.0-94.0); MEAN PLATELET VOLUME 10.5 fL (7.4-11.4); MONOCYTES # (AUTO) 0.3 10^3/uL (0.0-1.0); MONOCYTES % (AUTO) 2.8 %; NEUTROPHILS # (AUTO) 10.2 10^3/uL (1.5-6.6); NEUTROPHILS % (AUTO) 87.9 %; PLT - PLATELET COUNT 197 10^3/uL (130-450); RED BLOOD COUNT 4.82 10^6/uL (4.70-6.10); RED CELL DISTRIBUTION WIDTH 13.3 % (12.0-15.0); WHITE BLOOD COUNT 11.5 x10^3/uL (4.8-10.8)
[2021-08-19 03:03] LABS: ALBUMIN 4.3 g/dL (3.2-5.5); ALBUMIN/GLOBULIN RATIO 1.2 (1.0-2.2); BILIRUBIN,TOTAL 0.5 mg/dL (0.2-1.0); CALCIUM 9.3 mg/dL (8.5-10.3)
[2021-08-19] MEDS ORDERED: IOVERSOL 320 100 ML VIAL IVP ONE ×2 (03:39→04:12)
[2021-08-19] MEDS ORDERED: KETOROLAC 30 MG/ML VIAL IVP STA (04:08)
[2021-08-19 06:42] VITALS: BP 171/78
--- NOTE | 2021-08-19 09:10 | CT Report ---
PROCEDURE: Abdomen/Pelvis W INDICATIONS: LLQ abd pain CONTRAST: IV CONTRAST: Optiray 320 ml: 100 PO CONTRAST: *NO PO CONTRAST TECHNIQUE: After the administration of IV contrast, 5 mm thick sections acquired from the diaphragms to the symp hysis. 5 mm thick coronal and sagittal reformats were acquired. For radiation dose reduction, the f ollowing was used: automated exposure control, adjustment of mA and/or kV according to patient size. COMPARISON: None. FINDINGS: Image quality: Excellent. ABDOMEN: Lung bases: Bibasilar dependent atelectasis is seen. Heart size is normal, no pericardial effusion. Solid organs: Liver and spleen are normal in size and enhancement. Gallbladder contains calcified s tone in its dependent portion. No gallbladder wall thickening or pericholecystic fluid. Biliary syst em is non dilated. Pancreas is atrophic. No discrete pancreatic lesion is noted. Hypodense nodule is seen in left adrenal gland and measures 2 cm in size. No right adrenal nodules. There are bilateral renal cysts. Moderate left-sided hydronephrosis and perinephric fat stranding is seen. Nonobstructing left renal calculi are seen measures up to 3.5 mm in lower pole of left kidney. 5.5 mm stone in prox imal left ureter/UPJ is seen. No right-sided stone or hydronephrosis. Peritoneum and bowel: Bowel loops demonstrate normal wall thickness and caliber. No free fluid or a ir. Mild colonic diverticulosis is seen, no evidence of acute diverticulitis. Nodes and vessels: No retroperitoneal or mesenteric adenopathy by size criteria. Aorta and inferior vena cava are normal in size. Miscellaneous: No ventral hernias. PELVIS: Genitourinary: Bladder wall thickness is normal. Miscellaneous: No inguinal hernias or adenopathy. Bones: No suspicious bony lesions. No vertebral body compression fractures. Degenerative disc dise ase throughout lower thoracic and lumbar spine is seen. IMPRESSION: 1. 5.5 mm left UPJ/proximal ureteral stone with mild to moderate left-sided hydronephrosis and perine phric fat stranding. Nonobstructing stones also seen in left kidney. 2. Bilateral renal cysts. No right-sided hydronephrosis or hydroureter. Normal-appearing urinary blad elia. 3. No bowel obstruction or abnormal bowel wall thickening. No free fluid of free air. Mild sigmoid di verticulosis without CT evidence of acute diverticulitis. 4. 2 cm left adrenal nodule which may represent adrenal adenoma. Clinical and CT follow-up is recomme nded. No significant discrepancies from preliminary reading. Reviewed by: Ramón Muñoz MD on 08/19/2021 9:09 AM PDT Approved by: Ramón Muñoz MD on 08/19/2021 9:09 AM PDT Station ID: [id number]
== END 2021-08-19 06:56 | disposition home or self-care (01) ==
LOC: ED 02:05
DX: N13.2 Hydronephrosis with renal and ureteral calculous obstruction (principal); Z87.442 Personal history of urinary calculi; K80.20 Calculus of gallbladder without cholecystitis without obstruction; N28.1 Cyst of kidney, acquired; E27.8 Other specified disorders of adrenal gland
CPT/HCPCS: 36415; 74177; 80053; 81001; 83605; 83690; 84484; 85025; 93005; 96374; 96375; 99283; Q9967; 81003; 87086

== ENCOUNTER 2023-12-11 07:51 | Outpatient (CLI) | payer MEDICARE ==
[2023-12-11 15:00] LABS: BASOPHILS % (AUTO) 0.4 %; EOSINOPHILS # (AUTO) 0.1 10^3/uL (0.0-0.7); EOSINOPHILS % (AUTO) 1.9 %; HCT - HEMATOCRIT 41.7 % (42.0-52.0); HGB - HEMOGLOBIN 14.4 g/dL (14.0-18.0); LYMPHOCYTES # (AUTO) 1.6 10^3/uL (1.5-3.5); LYMPHOCYTES % (AUTO) 22.8 %; MEAN CORPUSCULAR HEMOGLOBIN 31.5 pg (27.0-31.0); MEAN CORPUSCULAR HGB CONC 34.5 g/dL (32.0-36.0); MEAN CORPUSCULAR VOLUME 91.2 fL (80.0-94.0); MEAN PLATELET VOLUME 11.2 fL (7.4-11.4); MONOCYTES # (AUTO) 0.4 10^3/uL (0.0-1.0); MONOCYTES % (AUTO) 6.5 %; NEUTROPHILS # (AUTO) 4.6 10^3/uL (1.5-6.6); NEUTROPHILS % (AUTO) 68.3 %; PLT - PLATELET COUNT 195 10^3/uL (130-450); RED BLOOD COUNT 4.57 10^6/uL (4.70-6.10); RED CELL DISTRIBUTION WIDTH 12.9 % (12.0-15.0); WHITE BLOOD COUNT 6.8 x10^3/uL (4.8-10.8)
[2023-12-11 15:36] LABS: THYROID STIMULATING HORMONE 1.03 uIU/mL (0.34-5.60)
[2023-12-11 15:59] LABS: ALBUMIN/GLOBULIN RATIO 1.2 (1.0-2.2); ALKALINE PHOSPHATASE 34 IU/L (42-121); ALT ALANINE AMINOTRANSFERASE 20 IU/L (10-60); AST ASPARTATE AMINOTRANSFERASE 19 IU/L (10-42); BILIRUBIN,TOTAL 0.4 mg/dL (0.2-1.0); BUN - BLOOD UREA NITROGEN 24 mg/dL (6-20); CALCIUM 9.6 mg/dL (8.5-10.3); CARBON DIOXIDE - CO2 30 mmol/L (21-32); CHLORIDE 104 mmol/L (101-111); CHOL/HDL RATIO 4.1 (<5.0); CHOLESTEROL 110 mg/dL; CREATININE 1.1 mg/dL (0.6-1.3); CRP - C-REACTIVE PROTEIN < 0.5 mg/dL (<0.5); GFR - MDRD 65 (>89); GLUCOSE 197 mg/dL (74-104); HDL CHOLESTEROL 27 mg/dL; LDL CHOLESTEROL,CALCULATED 43 mg/dL; LDL/HDL RATIO 1.6 (<3.6); POTASSIUM 3.8 mmol/L (3.5-4.5); SODIUM 140 mmol/L (135-145); TOTAL PROTEIN 7.3 g/dL (6.4-8.9); TRIGLYCERIDES 201 mg/dL; VLDL CHOLESTEROL 40 mg/dL
[2023-12-11 16:57] LABS: CREATININE,URINE 139.2 mg/dL; MICROALBUM/CREATININE RATIO,UR 47.4 ug/mg (<30.0); MICROALBUMIN,URINE 6.6 mg/dL
[2023-12-11 19:41] LABS: ESTIMATED AVERAGE GLUCOSE 217 mg/dL (70-100); HEMOGLOBIN A1c% 9.2 % (4.27-6.07)
== END 2023-12-11 07:52 | disposition home or self-care (01) ==
LOC: LAB.S 07:51
PROVIDERS: ATTEND Registered Nurse
DX: E11.8 Type 2 diabetes mellitus with unspecified complications (principal); Z13.228 Encounter for screening for other metabolic disorders; Z13.220 Encounter for screening for lipoid disorders; Z12.5 Encounter for screening for malignant neoplasm of prostate; Z13.29 Encounter for screening for other suspected endocrine disorder; Z13.0 Encounter for screening for diseases of the blood and blood-forming organs and certain disorders involving the immune mechanism; F17.210 Nicotine dependence, cigarettes, uncomplicated; I49.9 Cardiac arrhythmia, unspecified; I10 Essential (primary) hypertension; R41.82 Altered mental status, unspecified
CPT/HCPCS: 36415; 80053; 80061; 82043; 82570; 83036; 84443; 85025; 86140; G0103; 83721; 84153

== ENCOUNTER 2023-12-18 06:19 | Day surgery (SDC) | payer MEDICARE ==
[2023-12-18] MEDS: LACTATED RINGERS 1,000 ML IV ONE ×2 (06:24→08:28)
--- NOTE | 2023-12-18 07:06 | ANESTHESIA ---
Pre-Anesthesia VS, & Labs - Diagnosis positive cologuard - Procedure colonoscopy Vital Signs: Temp Pulse Resp BP Pulse Ox O2 Flow Rate 36.3 C L 76 12 145/88 H 96 12/18/23 06:30 12/18/23 06:30 12/18/23 06:30 12/18/23 06:30 12/18/23 06:30 Height: 6 ft Weight (kg): 87.4 kg Body Mass Index: 26.1 BMI Classification: Overweight - NPO >8 hours Last Fluid Intake: am prep - Lab Results Lab results reviewed: Yes Home Medications and Allergies Home Medications: Ambulatory Orders glipiZIDE [Glipizide] 10 mg ORAL DAILY 12/18/23 Losartan [Cozaar] 50 mg PO DAILY 08/19/21 Rosuvastatin Calcium [Crestor] 20 mg PO HS 08/19/21 hydrALAZINE [Apresoline] 75 mg ORAL DAILY 08/19/21 metFORMIN [Glucophage] 500 mg PO BID 08/19/21 glipiZIDE [Glipizide] 10 mg ORAL DAILY 12/18/23 Allergies/Adverse Reactions: Allergies Allergy/AdvReac Type Severity Reaction Status Date / Time No Known Drug Allergies Allergy Verified 12/18/23 06:47 Anes History & Medical History - Anesthetic History Anesthesia Complications: reports: No previous complications Family history of Anesthesia Complications: Denies Family history of Malignant Hyperthermia: Denies - Medical History Cardiovascular: reports: Hypertension Pulmonary: reports: None Gastrointestinal: reports: None Urinary: reports: Kidney stones Neuro: reports: Head injury Musculoskeletal: reports: None Endocrine/Autoimmune: reports: Type 2 diabetes Blood Disorders: reports: None Skin: reports: None Smoking Status: Current every day smoker - Surgical History Orthopedic: reports: Knee replacement Exam General: Alert, Oriented x3, Cooperative Dental: Other (no teeth) Mouth Openin Fingerbreadth Neck Mobility: Normal Mallampati classification: II Thyromental Distance: 4-6 cm Respiratory: Lungs clear, Normal breath sounds, No respiratory distress Cardiovascular: Regular rate Neurological: Normal speech Mental/Cognitive Status: Alert/Oriented X3, Normal for patient Cognitive Status: Within normal limits Plan Anesthesia Type: Total IV Consent for Procedure(s) Verified and Reviewed: Yes Code Status: Attempt Resuscitation ASA classification: 2-Mild systemic disease Is this case an emergency?: No
[2023-12-18] MEDS ORDERED: PROPOFOL 500 MG/50 ML 500 MG/50 ML VIAL ONE (07:08)
[2023-12-18] MEDS ORDERED: PROPOFOL 200 MG/20 ML VIAL IVP ONE (08:14)
[2023-12-18 08:52] VITALS: BP 138/73; O2SAT 100
--- NOTE | 2023-12-18 09:29 | ANESTHESIA POST OP EVALUATION ---
Anesthesia Post Eval - Post Anesthesia Eval Vitals: Last Vital Signs Temp 36.3 C L 12/18/23 08:28 Pulse 63 12/18/23 08:51 Resp 14 12/18/23 08:51 BP 138/73 H 12/18/23 08:51 Pulse Ox 100 12/18/23 08:51 O2 Flow Rate CV Function Including HR & BP: Stable Pain Control: Satisfactory Nausea & Vomiting: Negative Mental Status: Baseline Respiratory Status: Airway Patent Hydration Status: Satisfactory Anesthesia Complications: None
== END 2023-12-18 06:20 | disposition home or self-care (01) ==
LOC: SDS 06:19
PROVIDERS: ATTEND Surgery
PROC: 0DBL8ZZ Excision of Transverse Colon, Via Natural or Artificial Opening Endoscopic (ICD-10-PCS; 2023-12-18)
PROC: 0DBN8ZZ Excision of Sigmoid Colon, Via Natural or Artificial Opening Endoscopic (ICD-10-PCS; 2023-12-18)
PROC: 0DBP8ZZ Excision of Rectum, Via Natural or Artificial Opening Endoscopic (ICD-10-PCS; principal; 2023-12-18 07:30)
DX: Z12.11 Encounter for screening for malignant neoplasm of colon (principal); R19.5 Other fecal abnormalities; K62.1 Rectal polyp; D12.3 Benign neoplasm of transverse colon; D12.5 Benign neoplasm of sigmoid colon; F17.210 Nicotine dependence, cigarettes, uncomplicated; K64.1 Second degree hemorrhoids; E11.9 Type 2 diabetes mellitus without complications; Z79.84 Long term (current) use of oral hypoglycemic drugs; I10 Essential (primary) hypertension
CPT/HCPCS: 45385; J7120